=== PATIENT | male | born 1955 | race Caucasian/White ===

== ENCOUNTER 2021-09-23 14:43 | Day surgery (SDC) | payer MEDICARE, OTHER ==
[2021-09-23] VITALS (10 sets, daily range): BP systolic 114–173; BP diastolic 82–117
[~2021-09-23] VITALS: Ht 172.7 cm; Wt 84.0 kg
[2021-09-23] MEDS ORDERED: METFORMIN500 M2 PO (14:57)
[2021-09-23] MEDS ORDERED: LISINOPRIL5 MG PO (14:57)
[2021-09-23] MEDS ORDERED: TRULICITY0.75 MG/0. (14:57)
[2021-09-23 15:01] LABS: IMMATURE GRANULOCYTES 0.2 % (0.0-5.0); MEAN CELL VOLUME 88.2 fL CALC (80.0-100.0); MEAN CORPUSCULAR HGB 29.4 pG CALC (26.0-32.0); MEAN CORPUSCULAR HGB CONC 33.3 g/dL CAL (32.0-36.0); NEUT# 5.75 thou/uL (1.82-7.42); RED BLOOD COUNT 4.76 mill/uL (4.70-6.10); RED CELL DISTRI WIDTH 12.6 % (11.5-15.5)
[2021-09-23 15:11] LABS: ALBUMIN 4.3 g/dL (3.2-5.0); ALKALINE PHOSPHATASE 86 u/l (38-126); ANION GAP 14 (6-22 (CALC)); BILIRUBIN, TOTAL 0.4 mg/dL (0.0-1.4); BUN 12 mg/dL (8-23); BUN/CREATININE RATIO 13 (12-20 (CALC)); CARBON DIOXIDE 27 mmol/l (22-30); CHLORIDE 104 mmol/l (95-108); GFR > 60 ML/MIN (>=60 (CALC)); GFR FOR AFR.AMER. > 60 ML/MIN (>=60 (CALC)); SGOT/AST 28 u/l (19-48); SODIUM 140 mmol/l (137-146); TOTAL PROTEIN 7.7 g/dL (6.3-8.2)
== END 2021-09-23 19:20 | disposition home or self-care (01) ==
LOC: ED 14:43 → ED-I 15:06 → ED 16:08 → ORM 16:09
PROVIDERS: Family Medicine; ATTEND Surgery
PROC: 0DC38ZZ Extirpation of Matter from Lower Esophagus, Via Natural or Artificial Opening Endoscopic (ICD-10-PCS; principal; 2021-09-23)
DX: T18.128A Food in esophagus causing other injury, initial encounter (principal); I10 Essential (primary) hypertension; E11.9 Type 2 diabetes mellitus without complications; X58.XXXA Exposure to other specified factors, initial encounter; Z79.84 Long term (current) use of oral hypoglycemic drugs; Z20.822 Contact with and (suspected) exposure to COVID-19
CPT/HCPCS: J1610

== ENCOUNTER → 2022-05-29 | Day surgery (SDC) | payer MEDICARE, OTHER ==
[~2022-05-29] VITALS: Ht 172.7 cm; Wt 91.0 kg
[2022-05-29] VITALS (9 sets, daily range): BP systolic 121–162; BP diastolic 72–115
[~2022-05-29] MED LIST: LISINOPRIL5 MG PO; METFORMIN500 M2 PO; TRULICITY0.75 MG/0.
[2022-05-30 05:21] VITALS: BP 134/82
== END | disposition home or self-care (01) ==
LOC: ED 20:08 → ORM 21:56
PROVIDERS: ATTEND Surgery
PROC: 0DC38ZZ Extirpation of Matter from Lower Esophagus, Via Natural or Artificial Opening Endoscopic (ICD-10-PCS; principal; 2022-05-29)
PROC: 0DB38ZX Excision of Lower Esophagus, Via Natural or Artificial Opening Endoscopic, Diagnostic (ICD-10-PCS; 2022-05-29)
PROC: 0D758ZZ Dilation of Esophagus, Via Natural or Artificial Opening Endoscopic (ICD-10-PCS; 2022-05-29)
DX: T18.128A Food in esophagus causing other injury, initial encounter (principal); I10 Essential (primary) hypertension; E11.9 Type 2 diabetes mellitus without complications; Z79.84 Long term (current) use of oral hypoglycemic drugs; X58.XXXA Exposure to other specified factors, initial encounter; Z20.822 Contact with and (suspected) exposure to COVID-19
CPT/HCPCS: J1610

== ENCOUNTER 2022-09-29 20:16 | Observation (INO) | payer MEDICARE, OTHER ==
[2022-09-29] VITALS (10 sets, daily range): BP systolic 127–163; BP diastolic 76–94
[~2022-09-29] VITALS: Ht 172.7 cm; Wt 91.6 kg
[~2022-09-29 20:16] MED LIST changes: +JANUVIA; +SIMVASTATIN
[2022-09-30 00:19] VITALS: BP 136/84
[2022-09-30 03:00] VITALS: BP 151/87
[2022-09-30 08:35] VITALS: BP 136/79
[2022-09-30 10:38] VITALS: BP 122/64
== END 2022-09-30 13:59 | disposition home or self-care (01) ==
LOC: ED 20:16 → MS2 21:43
PROVIDERS: ADMIT Surgery; ATTEND Surgery
PROC: 0DC58ZZ Extirpation of Matter from Esophagus, Via Natural or Artificial Opening Endoscopic (ICD-10-PCS; principal; 2022-09-29)
PROC: 0D758ZZ Dilation of Esophagus, Via Natural or Artificial Opening Endoscopic (ICD-10-PCS; 2022-09-29)
PROC: 0DB48ZX Excision of Esophagogastric Junction, Via Natural or Artificial Opening Endoscopic, Diagnostic (ICD-10-PCS; 2022-09-29)
DX: T18.128A Food in esophagus causing other injury, initial encounter (principal); K29.70 Gastritis, unspecified, without bleeding; K44.9 Diaphragmatic hernia without obstruction or gangrene; K20.90 Esophagitis, unspecified without bleeding; I10 Essential (primary) hypertension; E11.9 Type 2 diabetes mellitus without complications; X58.XXXA Exposure to other specified factors, initial encounter; Z79.84 Long term (current) use of oral hypoglycemic drugs; Z79.85 Long-term (current) use of injectable non-insulin antidiabetic drugs; Z20.822 Contact with and (suspected) exposure to COVID-19
CPT/HCPCS: J1610

== ENCOUNTER 2023-02-14 00:47 | Emergency (ER) | payer MEDICARE, OTHER ==
[2023-02-14] VITALS (18 sets, daily range): BP systolic 113–147; BP diastolic 69–82
[~2023-02-14] VITALS: Ht 172.7 cm; Wt 90.0 kg
[~2023-02-14 00:47] MED LIST changes: +JANUVIA100 MG PO; +SIMVASTATIN40 MG PO; +TRULICITY3 MG/0.5 M SC; +ZESTRIL40 MG PO
== END 2023-02-14 09:45 | disposition short-term general hospital (02) ==
LOC: ED 00:47
DX: T18.128A Food in esophagus causing other injury, initial encounter (principal); I10 Essential (primary) hypertension; E11.9 Type 2 diabetes mellitus without complications; X58.XXXA Exposure to other specified factors, initial encounter; Z79.84 Long term (current) use of oral hypoglycemic drugs
CPT/HCPCS: J1610; S0164